=== PATIENT | male | born 1965 | race Caucasian/White ===

== ENCOUNTER 2018-09-22 13:36 | Emergency (ER) | payer SELFPAY ==
[2018-09-22] MEDS: ACETAMINOPHEN 325 MG TAB PO (16:51)
== END 2018-09-22 17:09 | disposition home or self-care (01) ==
LOC: FTE 13:36
DX: S46.912A Strain of unspecified muscle, fascia and tendon at shoulder and upper arm level, left arm, initial encounter (principal); X50.0XXA Overexertion from strenuous movement or load, initial encounter; Y92.9 Unspecified place or not applicable
CPT/HCPCS: 99282